=== PATIENT | male | born 1935 | race Caucasian/White ===

== ENCOUNTER 2021-06-10 12:40 | Day surgery (SDCO) | payer MEDICARE ==
[~2021-06-10] VITALS: Ht 172.7 cm; Wt 104.8 kg
[~2021-06-10 12:40] MED LIST: K-DUR20 MEQ PO; ZAROXOLYN2.5 MG PO
[2021-06-10 15:38] LABS: BASOPHIL 0.6 % (0-2); EOSINOPHIL 1.2 % (0-7); HCT 44.9 % (42.0-52.0); HGB 14.4 g/dl (13.2-18.0); MCH 28.7 pg (25.0-31.0); MCHC 32.1 g/dL (32.0-36.0); MCV 89.4 fL (78.0-100.0); MONOCYTE 7.5 % (0-12); MPV 9.1 fL (6.0-9.5); NEUTROPHIL 69.2 % (41-80); NRBC 0; PLT 326 K/uL (150-400); RBC 5.02 M/uL (4.70-6.00); RDW 13.6 % (11.5-14.0); WBC 8.8 K/uL (4.0-10.5)
[2021-06-10 15:39] LABS: BILIRUBIN NEGATIVE (NEGATIVE); BLOOD NEGATIVE Ery/uL (NEGATIVE); CLARITY CLEAR (CLEAR); COLOR YELLOW (YELLOW); GLUCOSE (U) NORMAL (NORMAL); LEUKOCYTES NEGATIVE Leu/uL (NEGATIVE); NITRITE NEGATIVE (NEGATIVE); PROTEIN NEGATIVE (NEGATIVE); SPECIFIC GRAVITY 1.025 (1.001-1.030); UROBILINOGEN 0.2 mg/dL (0.2-1.0)
[2021-06-10 15:43] LABS: INR 1.14 (0.9-1.2)
[2021-06-10 15:44] LABS: PTT 38.7 SECONDS (24.4-34.7)
[2021-06-10 16:00] LABS: PRO-BNP 1240 pg/mL (<450)
[2021-06-10 16:01] LABS: ALBUMIN 3.7 g/dL (3.4-5.0); BILIRUBIN - TOTAL 0.6 mg/dL (0.2-1.0); BUN/CREAT RATIO (CALC) 12.6 RATIO; C-REACTIVE PROTEIN 1.1 mg/dL (<=0.90); CREATININE 1.11 mg/dL (0.67-1.17); GLOBULIN (CALCULATION) 3.8 g/dL; MAGNESIUM 2.2 mg/dL (1.8-2.4); POTASSIUM 4.4 mmol/L (3.5-5.1); TOTAL PROTEIN 7.5 g/dL (6.4-8.2)
[2021-06-10 16:13] LABS: LACTIC ACID 0.9 mmol/L (0.4-1.9)
[2021-06-10] MEDS ORDERED: LOPRESSOR50 MG PO (20:54)
[2021-06-10] MEDS ORDERED: NORVASC5 MG PO (20:54)
[2021-06-10] MEDS ORDERED: JANTOVEN5 MG PO (20:55)
[2021-06-10] MEDS ORDERED: ALLOPURINOL100 MG PO (20:56)
[2021-06-10] MEDS ORDERED: FENOFIBRATE48 MG PO (20:56)
[2021-06-10] MEDS ORDERED: LASIX40 MG PO (20:57)
[2021-06-10] MEDS ORDERED: DIGITEK125 MCG PO (20:58)
[2021-06-10] MEDS ORDERED: VITAMIN B-121000 MC1 PO (20:59)
[2021-06-10] MEDS ORDERED: K-TAB ER20 MEQ PO (20:59)
[2021-06-10] MEDS ORDERED: COLACE100 MG PO (20:59)
[2021-06-10] MEDS ORDERED: ZINC50 MG PO (21:00)
[2021-06-10] MEDS ORDERED: ASCORBIC ACID500 MG PO (21:00)
[2021-06-10] MEDS ORDERED: CEPHALEXIN500 MG PO (21:01)
[2021-06-11 07:38] LABS: BASOPHIL 0.6 % (0-2); EOSINOPHIL 0.8 % (0-7); HCT 52.6 % (42.0-52.0); HGB 16.5 g/dl (13.2-18.0); LYMPHOCYTE 15.4 % (15-48); MCH 31.8 pg (25.0-31.0); MCHC 31.4 g/dL (32.0-36.0); MCV 101.3 fL (78.0-100.0); MONOCYTE 10.5 % (0-12); MPV 11.1 fL (6.0-9.5); NEUTROPHIL 72.3 % (41-80); NRBC 0; PLT 181 K/uL (150-400); RBC 5.19 M/uL (4.70-6.00); RDW 14.6 % (11.5-14.0); WBC 10.1 K/uL (4.0-10.5)
[2021-06-11 07:42] LABS: INR 2.82 (0.9-1.2); PROTHROMBIN TIME 28.7 SECONDS (11.8-13.4)
[2021-06-11 07:59] LABS: BUN/CREAT RATIO (CALC) 17.9 RATIO; CREATININE 1.12 mg/dL (0.67-1.17)
== END 2021-06-11 13:34 | disposition home or self-care (01) ==
LOC: FER 12:40 → FMS 18:32
PROVIDERS: Emergency Medicine; Nurse Practitioner; ADMIT Internal Medicine
DX: I11.0 Hypertensive heart disease with heart failure (principal); I50.33 Acute on chronic diastolic (congestive) heart failure; I48.20 Chronic atrial fibrillation, unspecified; I27.20 Pulmonary hypertension, unspecified; I25.10 Atherosclerotic heart disease of native coronary artery without angina pectoris; F10.11 Alcohol abuse, in remission; R41.0 Disorientation, unspecified; Z79.01 Long term (current) use of anticoagulants; Z20.822 Contact with and (suspected) exposure to COVID-19; Z87.891 Personal history of nicotine dependence; Z96.641 Presence of right artificial hip joint; Z91.041 Radiographic dye allergy status
CPT/HCPCS: 36415; 71045; 71250; 80048; 80053; 80162; 81003; 82728; 83605; 83615; 83735; 83880; 84145; 84443; 84484; 85025; 85610; 85730; 86140; 93005; G0378; J1940; U0002

== ENCOUNTER 2021-08-18 05:37 | Inpatient (IN) | payer MEDICARE ==
[~2021-08-18] VITALS: Ht 182.9 cm; Wt 114.8 kg
[~2021-08-18 05:37] MED LIST changes: +ALLOPURINOL100 MG PO; +ASCORBIC ACID500 MG PO; +CEPHALEXIN500 MG PO; +COLACE100 MG PO; +DIGITEK125 MCG PO; +FENOFIBRATE48 MG PO; +JANTOVEN5 MG PO; +K-TAB ER20 MEQ PO; +LASIX40 MG PO; +LOPRESSOR50 MG PO; +NORVASC5 MG PO; +VITAMIN B-121000 MC1 PO; +ZINC50 MG PO
[2021-08-18 06:41] LABS: BASOPHIL 0.4 % (0-2); HCT 51.3 % (42.0-52.0); HGB 16.3 g/dl (13.2-18.0); LYMPHOCYTE 22.2 % (15-48); MCH 32.1 pg (25.0-31.0); MCHC 31.8 g/dL (32.0-36.0); MONOCYTE 9.8 % (0-12); MPV 11.3 fL (6.0-9.5); NEUTROPHIL 66.3 % (41-80); NRBC 0; PLT 189 K/uL (150-400); RBC 5.08 M/uL (4.70-6.00); RDW 14.8 % (11.5-14.0); WBC 12.7 K/uL (4.0-10.5)
[2021-08-18 07:04] LABS: ALBUMIN 3.2 g/dL (3.4-5.0); ALKALINE PHOSHATASE 92 U/L (46-116); ALT 25 U/L (16-63); AST 22 U/L (15-37); BILIRUBIN - TOTAL 0.6 mg/dL (0.2-1.0); BUN 21 mg/dL (7-18); BUN/CREAT RATIO (CALC) 19.6 RATIO; CHLORIDE 103 mmol/L (98-107); CO2 (BICARBONATE) 35 mmol/L (21-32); CREATININE 1.07 mg/dL (0.67-1.17); GLOBULIN (CALCULATION) 3.7 g/dL; GLUCOSE 107 mg/dL (74-106); LIPASE 232 U/L (73-393); POTASSIUM 3.9 mmol/L (3.5-5.1); TOTAL PROTEIN 6.9 g/dL (6.4-8.2)
[2021-08-18 07:10] LABS: ACETAMINOPHEN (TYLENOL) < 2.0 ug/mL (10.0-30.0); LACTIC ACID 1.3 mmol/L (0.4-1.9)
[2021-08-18 08:17] LABS: BILIRUBIN NEGATIVE (NEGATIVE); BLOOD NEGATIVE Ery/uL (NEGATIVE); CLARITY CLEAR (CLEAR); COLOR YELLOW (YELLOW); GLUCOSE (U) NORMAL (NORMAL); LEUKOCYTES NEGATIVE Leu/uL (NEGATIVE); NITRITE NEGATIVE (NEGATIVE); PROTEIN TRACE (LOW) mg/dL (NEGATIVE); SPECIFIC GRAVITY 1.025 (1.001-1.030); UROBILINOGEN 0.2 mg/dL (0.2-1.0); pH 5.5 (5.0-9.0)
[2021-08-18 08:24] LABS: SQUAMOUS EPITHELIAL CELLS RARE; URINARY RBC RARE; URINARY WBC RARE
[2021-08-18 15:37] LABS: CORONAVIRUS 2019 SARS-COV-2 NEGATIVE (NEGATIVE); INFLUENZA A NAA NEGATIVE (NEGATIVE)
[2021-08-18 17:24] LABS: INR 1.04 (0.9-1.2); PTT 24.9 SECONDS (24.4-34.7)
[2021-08-19 09:37] LABS: BASOPHIL 0.1 % (0-2); EOSINOPHIL 0.1 % (0-7); HCT 47.2 % (42.0-52.0); HGB 15.5 g/dl (13.2-18.0); LYMPHOCYTE 9.5 % (15-48); MCH 32.4 pg (25.0-31.0); MCHC 32.8 g/dL (32.0-36.0); MCV 98.7 fL (78.0-100.0); MONOCYTE 6.6 % (0-12); MPV 11.5 fL (6.0-9.5); NEUTROPHIL 83.1 % (41-80); NRBC 0; PLT 200 K/uL (150-400); RBC 4.78 M/uL (4.70-6.00); RDW 15.3 % (11.5-14.0); WBC 14.9 K/uL (4.0-10.5)
[2021-08-19 09:45] LABS: PROTHROMBIN TIME 21.8 SECONDS (11.8-13.4); PTT 40.6 SECONDS (24.4-34.7)
[2021-08-19 10:00] LABS: ALBUMIN 2.6 g/dL (3.4-5.0); BILIRUBIN - TOTAL 1.2 mg/dL (0.2-1.0); BUN/CREAT RATIO (CALC) 17.6 RATIO; CREATININE 0.91 mg/dL (0.67-1.17); GLOBULIN (CALCULATION) 3.1 g/dL; MAGNESIUM 1.7 mg/dL (1.8-2.4); PHOSPHORUS 2.9 mg/dL (2.6-4.7); TOTAL PROTEIN 5.7 g/dL (6.4-8.2)
[2021-08-19 10:06] LABS: CKMB 2.8 ng/mL (0.0-3.6)
[2021-08-19 12:05] LABS: BUN/CREAT RATIO (CALC) 18.2 RATIO; CREATININE 0.88 mg/dL (0.67-1.17); POTASSIUM 3.1 mmol/L (3.5-5.1)
[2021-08-19 17:34] LABS: BASOPHIL 0.3 % (0-2); EOSINOPHIL 0.1 % (0-7); HCT 46.5 % (42.0-52.0); HGB 15.6 g/dl (13.2-18.0); LYMPHOCYTE 11.7 % (15-48); MCH 32.7 pg (25.0-31.0); MCHC 33.5 g/dL (32.0-36.0); MCV 97.5 fL (78.0-100.0); MONOCYTE 7.4 % (0-12); NEUTROPHIL 79.9 % (41-80); NRBC 0; PLT 204 K/uL (150-400); RBC 4.77 M/uL (4.70-6.00); RDW 15.6 % (11.5-14.0); WBC 14.5 K/uL (4.0-10.5)
[2021-08-19 18:03] LABS: ALBUMIN 2.5 g/dL (3.4-5.0); BILIRUBIN - TOTAL 1.8 mg/dL (0.2-1.0); C-REACTIVE PROTEIN 1.1 mg/dL (<=0.90); CREATININE 0.94 mg/dL (0.67-1.17); GLOBULIN (CALCULATION) 3.2 g/dL; PHOSPHORUS 2.6 mg/dL (2.6-4.7); POTASSIUM 3.4 mmol/L (3.5-5.1); TOTAL PROTEIN 5.7 g/dL (6.4-8.2)
[2021-08-19 18:32] LABS: CORONAVIRUS 229E NOT DETECTED (NOT DETECT); CORONAVIRUS HKU1 NOT DETECTED (NOT DETECT); CORONAVIRUS NL63 NOT DETECTED (NOT DETECT); CORONAVIRUS OC43 NOT DETECTED (NOT DETECT); HUMAN METAPNEUMO NOT DETECTED (NOT DETECT); INFLUENZA A NOT DETECTED (NOT DETECT); INFLUENZA A 2009 H1N1 NOT DETECTED (NOT DETECT); INFLUENZA A H1 NOT DETECTED (NOT DETECT); INFLUENZA A H3 NOT DETECTED (NOT DETECT); INFLUENZA B NOT DETECTED (NOT DETECT); PARAINFLUENZA 1 NOT DETECTED (NOT DETECT); PARAINFLUENZA 2 NOT DETECTED (NOT DETECT)
[2021-08-19 18:33] LABS: B. PERTUSSIS DNA NOT DETECTED (NOT DETECT); CHLAMYDOPHILA PNEUMON DNA PCR NOT DETECTED (NOT DETECT); CORONAVIRUS 2019 PCR NOT DETECTED (NOT DETECTD); MYCOPLASMA PNEUMONIAE NOT DETECTED (NOT DETECT); PARAINFLUENZA 3 NOT DETETED (NOT DETECT); PARAINFLUENZA 4 NOT DETECTED (NOT DETECT); RESPIRATORY SYNCYTIAL VIRUS NOT DETECTED (NOT DETECT)
[2021-08-20 05:41] LABS: BASOPHIL 0.3 % (0-2); EOSINOPHIL 0 % (0-7); HCT 49.7 % (42.0-52.0); HGB 16.5 g/dl (13.2-18.0); LYMPHOCYTE 8.1 % (15-48); MCH 32.8 pg (25.0-31.0); MCHC 33.2 g/dL (32.0-36.0); MCV 98.8 fL (78.0-100.0); MONOCYTE 1.2 % (0-12); MPV 11.5 fL (6.0-9.5); NEUTROPHIL 89.8 % (41-80); NRBC 0; PLT 216 K/uL (150-400); RBC 5.03 M/uL (4.70-6.00); RDW 15.8 % (11.5-14.0); WBC 11.3 K/uL (4.0-10.5)
[2021-08-20 06:03] LABS: ALBUMIN 2.7 g/dL (3.4-5.0); BILIRUBIN - TOTAL 1.9 mg/dL (0.2-1.0); C-REACTIVE PROTEIN 3.2 mg/dL (<=0.90); CREATININE 0.95 mg/dL (0.67-1.17); GLOBULIN (CALCULATION) 3.5 g/dL; MAGNESIUM 2.2 mg/dL (1.8-2.4); POTASSIUM 3.9 mmol/L (3.5-5.1); TOTAL PROTEIN 6.2 g/dL (6.4-8.2)
--- NOTE | 2021-08-20 16:23 | NUR ---
08/20/21 Mr. Sierra lives at home with his spouse. He has a cane, rw, and 3in1. Ms. Sierra reports that Mr. Sierra was experiencing hallucinations at home a month prior to admission. She described that he would talk to the TV and ask her to talk to the people in the TV. - A report was given to Dr. Bagley. - Will monitor for discharge planning needs.
--- NOTE | 2021-08-20 18:19 | NUR ---
1530 - [facility]ON[facility] CALLED AND RN X 6 AT BEDSIDE, PT WAS ACTIVELY BLEEDING FROM RIJ SITE AND JAVIER RN WAS APPLYING PRESSURE. JAVIER RN REPORTED THAT PRIOR TO CALLING RR SHE NOTED THAT THE RIJ WAS "SQUIRTING" BLOOD FROM SITE, RIJ D/C'd AND SHE BEGAN TO APPLY PRESSURE. KATHERINE/SHELLEY AT BEDSIDE ALSO. PT HEART RATE 150-170'S, BP 204/100. 1550 - DR. REGAN CALLED PER KATHERINE REQUEST TO CONSULT ON PT VIA EMERGENT REQUEST. DR. REGAN SUGGESTED TO OBTAIN COAGS AND NOTIFY ED PHYSICIAN. SHELLEY SPOKE DIRECTLY WITH SHEREEN. LATASHA CALLED DR. MUÑOZ TO ASSESS AND COLLABORATE WITH KATHERINE. 1600 - DR. MUÑOZ AT BEDSIDE WITH PT TO DISCUSS POC WITH KATHERINE. PHARMACIST WAS CONSULTED AND PROTAMINE SULFATE TO BE GIVEN AND RN's CONTINUE TO APPLY PRESSURE TO RIGHT NECK.
[2021-08-20 18:57] LABS: HCT 37.3 % (42.0-52.0); HGB 12.1 g/dL (13.2-18.0)
[2021-08-20 19:10] LABS: INR 1.56 (0.9-1.2); PROTHROMBIN TIME 17.9 SECONDS (11.8-13.4)
[2021-08-20 19:11] LABS: PTT 40.5 SECONDS (24.4-34.7)
--- NOTE | 2021-08-20 19:22 | NUR ---
1600 - PT RECEIVED 5 MG VALIUM R/T AGITATION, V/S, AND ANXIOUSNESS OVER SEVERITY OF SITUATION. PT HAS LR INFUSING AT BOLUS RATE. 1616 - 11 ML PROTAMINE SULFATE GIVEN IVP OVER 2 MIN. 1622 - GLIDESCOPE AT BEDSIDE, AND RT X 2. OTHER RN SENT TO BLOOD BANK TO RETRIEVE FFP. 1625 - 135 HR, 165/97 (114), RR 10, 95% BAGGED PER RT. 1628 - PREPARING TO INTUBATE, PT RECEIVED ETOMIDATE 20 MG IVP. 1630 - 100 MG SUCC. IVP. 1631 - DR MURPHY ATTEMPTING INTUBATION WITH GLIDESCOPE. 1633 - PT SUCCESSFULLY INTUBATED WITH 7.5 ET TUBE, 23 AT LIP. GOOD COLOR CHANGE NOTED AND SHELLEY AUSCULTATED BREATH SOUNDS. 1637 - PT PLACED ON VENT. RR 16, TV 650, 100% FI02, 5 PEEP. PT ALSO DURING THIS TIME HAS 6-7 BEAT RUN OF VTACH, DR MURPHY NOTIFIED. PT BP 89/60 (70) KATHERINE NOTIFIED AND VERBAL ORDER TO HANG LEVOPHED. 1645 - FFP STARTED AT 500 ML/HR 1648 - LEVOPHED STARTED AT 4 MCG 1703 - PT RECEIVED IVP VECORONIUM 1706 - RESTRAINTS PLACED ON BILATERAL WRISTS PER OTHER RN PT BECOMING AGITATED. FENTANYL INCREASED TO 300 MCG, PRECEDEX 1.2. 1720 - RAD AT BEDSIDE FOR CXRAY FOR TUBE PLACEMENT. 1750 - KATHERINE STATED THAT PT HAS SMALL PNEUMO AND CONSULTED SHEREEN REGAN WANTS AVAILABLE CHEST TUBE KIT FROM OR 14 FR, PROCEDURE TRAY WITH KIRILL CLAMPS.
--- NOTE | 2021-08-20 21:20 | NUR ---
1345 PATIENT EXTUBATED AND PLACED ON 40% VENTI MASK AFTER PATIENT WAS MOUTH BREATHING AND NASAL CANULA WAS INEFFECTIVE
--- NOTE | 2021-08-20 21:21 | NUR ---
1430 INCRESED OOZING NOTED AROUND RIJ CENTTRAL LINE SITE. DRESSING CHANGED AND ULTRA FOAM APPLIED TO SITE. PRESSURE DRESSING AND BAG APPLIED TO SITE 1445 DR ROSA NOTIFIED OF INCREASED BLEEDING, STATED WOULD COME AND LOOK AT IT. 1520 BLEEDING CONTINUING TO INCREASE IN AMOUNT. DRESSING REMOVED AND DR. ROSA NOTIFIED OF INCREASED BLEEDING. HE CAME TO LOOK AT IT AND DECISION WAS MADE TO REMOVE CENTRAL LINE. 1525 CENTRAL LINE REMOVED AND LARGE AMOUNT OF BLOOD CAME SPURTED FROM SITE. PRESSURE APPLIED AND NURSE CALLED FOR HELP.
--- NOTE | 2021-08-20 21:29 | NUR ---
1800 [address] FFP IN[address] MURPHY IS ATTEMPTING TO GET FEMORAL CENTRAL LINE INSERTED. 1836 UNIT OF PACKED RBCS STARTED 1900 CENTRAL LINE IN[address]ED BY DR MURPHY
[2021-08-21 02:29] LABS: BASOPHIL 0.1 % (0-2); EOSINOPHIL 0.1 % (0-7); HCT 33.4 % (42.0-52.0); LYMPHOCYTE 11.7 % (15-48); MCH 31.3 pg (25.0-31.0); MCHC 32.3 g/dL (32.0-36.0); MCV 96.8 fL (78.0-100.0); MONOCYTE 11.4 % (0-12); MPV 11.1 fL (6.0-9.5); NEUTROPHIL 75.9 % (41-80); NRBC 0; PLT 169 K/uL (150-400); RBC 3.45 M/uL (4.70-6.00); RDW 18.3 % (11.5-14.0); WBC 16.1 K/uL (4.0-10.5)
[2021-08-21 02:54] LABS: INR 1.53 (0.9-1.2); PROTHROMBIN TIME 17.7 SECONDS (11.8-13.4)
[2021-08-21 02:55] LABS: PTT 46.2 SECONDS (24.4-34.7)
[2021-08-21 03:03] LABS: HGB 10.8 g/dl (13.2-18.0)
[2021-08-21 03:09] LABS: ALBUMIN 2.1 g/dL (3.4-5.0); BILIRUBIN - TOTAL 1.6 mg/dL (0.2-1.0); BUN/CREAT RATIO (CALC) 18.7 RATIO; C-REACTIVE PROTEIN 2.4 mg/dL (<=0.90); CREATININE 0.91 mg/dL (0.67-1.17); GLOBULIN (CALCULATION) 2.6 g/dL; MAGNESIUM 1.7 mg/dL (1.8-2.4); PHOSPHORUS 2.4 mg/dL (2.6-4.7); POTASSIUM 3.1 mmol/L (3.5-5.1); TOTAL PROTEIN 4.7 g/dL (6.4-8.2)
--- NOTE | 2021-08-21 08:03 | NUR ---
At approximately 0330, the patient became hypotensive with a systolic in the 60's. CARE DIRECTOR RN called. Patient had no external signs of bleeding, bilateral breath sounds present, and no issues with ventilator compliance. Nurse began increasing rate of levophed. Nurse gave an ordered LR bolus and 6 units of blood were given emergently through the heated circuit. ED MD assessed the patient and concluded that the patient likely had an internal bleed. The patient was placed on vasopression, an arterial line was placed, LR at 200 ml/hr were ordered.
--- NOTE | 2021-08-21 13:52 | NUR ---
0905: HAD DISCUSSION WITH REGARDING PATIENT CARE. STATED PATIENT DID NOT WANT CPR. ALSO STATED TO TURN OFF ALL MEDICATIONS BUT LEAVE PATIENT ON VENT. 1130: REQUESTED THE PATIENT BE EXTUBATED AND VENT TURNED OFF. SHE SPOKE WITH AND CONFIRMED HER WISHES WITH HIM. 1204: DECLARED . FAMILY WAS COMFORTED BY OBJECTS CONSERVATOR ELDIN. [facility]. [facility] WAS CALLED AND [facility] WAS NOTIFIED. STAFF CLEANED PATIENT AND REMOVED ALL IV AND TUBES. PATIENT WAS MADE PRESENTABLE FOR PRIVATE VISITATION WITH FAMILY. [facility] ARRIVED TO TRANSPORT PATIENT TO HOME. SIGNED PAPERWORK AND BIOLOGICAL TECHNICIAN WELL. CHECKLIST WAS COMPLETED. NOTHING FURTHER WAS REQUIRED. FAMILY TOOK ALL BELONGINGS.
== END 2021-08-21 13:22 | disposition expired | DRG 871 ==
LOC: FER 05:37 → FICU 14:34
PROVIDERS: Allergy & Immunology Allergy; Emergency Medicine; Nurse Practitioner; Nurse Practitioner Family; ADMIT Internal Medicine
PROC: 5A1945Z Respiratory Ventilation, 24-96 Consecutive Hours (ICD-10-PCS; principal; 2021-08-18)
PROC: 0BH17EZ Insertion of Endotracheal Airway into Trachea, Via Natural or Artificial Opening (ICD-10-PCS; 2021-08-18)
PROC: 0T9B70Z Drainage of Bladder with Drainage Device, Via Natural or Artificial Opening (ICD-10-PCS; 2021-08-18)
PROC: 02HV33Z Insertion of Infusion Device into Superior Vena Cava, Percutaneous Approach (ICD-10-PCS; 2021-08-19)
PROC: 3E033XZ Introduction of Vasopressor into Peripheral Vein, Percutaneous Approach (ICD-10-PCS; 2021-08-19)
PROC: 0BH17EZ Insertion of Endotracheal Airway into Trachea, Via Natural or Artificial Opening (ICD-10-PCS; 2021-08-20)
PROC: 5A1935Z Respiratory Ventilation, Less than 24 Consecutive Hours (ICD-10-PCS; 2021-08-20)
PROC: 30233N1 Transfusion of Nonautologous Red Blood Cells into Peripheral Vein, Percutaneous Approach (ICD-10-PCS; 2021-08-20)
PROC: 30233K1 Transfusion of Nonautologous Frozen Plasma into Peripheral Vein, Percutaneous Approach (ICD-10-PCS; 2021-08-20)
PROC: 06HM33Z Insertion of Infusion Device into Right Femoral Vein, Percutaneous Approach (ICD-10-PCS; 2021-08-20)
PROC: 03HY32Z Insertion of Monitoring Device into Upper Artery, Percutaneous Approach (ICD-10-PCS; 2021-08-21)
PROC: 4A133B1 Monitoring of Arterial Pressure, Peripheral, Percutaneous Approach (ICD-10-PCS; 2021-08-21)
PROC: 4A133J1 Monitoring of Arterial Pulse, Peripheral, Percutaneous Approach (ICD-10-PCS; 2021-08-21)
DX: A41.9 Sepsis, unspecified organism (principal); R65.21 Severe sepsis with septic shock; J95.811 Postprocedural pneumothorax; J18.9 Pneumonia, unspecified organism; J96.01 Acute respiratory failure with hypoxia; J69.0 Pneumonitis due to inhalation of food and vomit; I48.20 Chronic atrial fibrillation, unspecified; J44.0 Chronic obstructive pulmonary disease with (acute) lower respiratory infection; I97.51 Accidental puncture and laceration of a circulatory system organ or structure during a circulatory system procedure; I11.0 Hypertensive heart disease with heart failure; I50.9 Heart failure, unspecified; I07.1 Rheumatic tricuspid insufficiency; Z51.5 Encounter for palliative care; Z20.822 Contact with and (suspected) exposure to COVID-19; I25.10 Atherosclerotic heart disease of native coronary artery without angina pectoris; F03.90 Unspecified dementia, unspecified severity, without behavioral disturbance, psychotic disturbance, mood disturbance, and anxiety; I27.20 Pulmonary hypertension, unspecified; R79.89 Other specified abnormal findings of blood chemistry; M10.9 Gout, unspecified; Z96.641 Presence of right artificial hip joint; Z90.49 Acquired absence of other specified parts of digestive tract; Z79.899 Other long term (current) drug therapy; Z87.891 Personal history of nicotine dependence; Z98.890 Other specified postprocedural states; Z78.1 Physical restraint status; Z79.01 Long term (current) use of anticoagulants
CPT/HCPCS: 31500; 36415; 36430; 36600; 70450; 70470; 70491; 71045; 71275; 80048; 80053; 80061; 80162; 81001; 82553; 82803; 83036; 83605; 83690; 83735; 83880; 84100; 84145; 84484; 85014; 85018; 85025; 85610; 85730; 86140; 86922; 87040; 87070; 87186; 87205; 93005; 94002; 94640; 94664; 94762; 96365; 96366; 96375; C9113; G0480; J1100; J1650; J2250; J2543; J2704; J2720; J2930; J3010; J3360; J3370; J3475; J3480; J7030; J7040; J7050; J7060; J7120; P9016; P9017; Q9967; U0002